=== PATIENT | female | born 1950 | race Caucasian/White ===

== ENCOUNTER 2016-10-08 12:48 | Inpatient (IN) | payer OTHER ==
[~2016-10-08] VITALS: Ht 157.5 cm; Wt 83.9 kg
[~2016-10-08 12:48] MED LIST: ADVAIR DISKUS 21 DSK INH; BIOTIN5 MG PO; CALCIUM + D 6001 TAB PO; CENTRUM1 TAB PO; GLUCOSAMINE500 MG PO; GOOD SENSE IBU200 MG PO; LEVAQUIN750 MG PO; MAGNESIUM OXID400 MG PO; NATURAL IRON65 MG PO; POTASSIUM CHLO10 MEQ PO; PROAIR HFA0.09 MG/Ac INH; VITAB121000 PO; VITAMIN D32000 I1 PO
--- NOTE | 2016-10-12 10:22 | Operative Report ---
Operative/Inv Procedure Report Surgery Date: 10/12/16 Name of Procedure: Left total knee arthroplasty Pre-Operative Diagnosis: Primary left knee osteoarthritis Post-Operative Diagnosis: Same Estimated Blood Loss: less than 50ml Surgeon/Trackmobile Operator: CURLY DRUMMOND,Robin PETERSON. Anesthesia: block Implants: Stuart triathlon total knee system-size 4 femur, size 3 tibia, 11 mm cruciate retaining polyethylene, 27 patella Drains: None Specimens: Femoral, tibial, patellar bone Microbiology: Urine Tourniquet: 54 minutes Complications: none Condition: Stable Operative Indication: Patient is a 65-year-old woman with worsening bilateral knee pain. He had been treated with conservative measures for a long period of time but only short-term relief most recently seems total knee arthroplasty after risks benefits and expectations of surgical and further nonsurgical options including but not limited to persistent knee pain, need for subsequent surgery, infection, DVT, injury to blood vessel or nerve, anesthesia risks Operative/Procedure Note Note: Patient was brought to the operating room and transferred to the operating table. Once under appropriate anesthesia the left lower extremity was prepped and draped in standard fashion. Preoperative IV antibiotics were given prophylactically. Leg was elevated exsanguinated and tourniquet was inflated to 300 mm of pressure. Standard anterior incision was made for anticipated medial parapatellar approach. The incision was taken down sharply to the underlying retinaculum. Retinaculum was incised with a minimal extension into the quadriceps tendon. Osteophytes were excised. Knee was flexed after excision of remnants of the medial and lateral menisci. Remnants of the ACL was excised. I then used a drill to enter the intramedullary canal for the intramedullary guide for the distal femoral cut. This cut was made 6 valgus orientation. I then sized the femur to a size 4. Size 4 cutting guide was pinned in place and the 4 cuts were made. I then turned my attention to the tibia. I used the external tibial alignment guide. This guide was set for a neutral cut from medial to lateral and reproducing patient's posterior slow-paced on preoperative templating and intraoperative measurements. Soft tissues were protected medially laterally and posteriorly. The PCL was recessed to balance. Remnants of the posterior horns of the medial lateral menisci were excised. The cut was made. The tibia was incised was size 3. Trial was then performed using a size 3 tibia size 4 femur and a 9 mm insert. The Balancing was symmetric but patient would need a 11 mm insert this would be confirmed later on the case. I then turned my attention to the patella. The patella was measured the appropriate thickness was removed and replaced with a 27 mm patella. 3 lug holes were drilled. The tibial rotation was marked and the 2 lug holes for the femur completed. I then removed all trial components. I finished preparation of the tibia with the tibial punch with the appropriate rotation predetermined. I then removed all instrumentation and copiously irrigated the knee. After copious irrigation and after plugging the distal femur with the anterior chamfer bone to minimize postoperative hemarthrosis and swelling he cement was applied to the dry clean bony surfaces of the tibia. The size 3 tibia was impacted in place and excess cement was removed with curettes. Cement was applied to the dry clean bony surfaces of the femur. The size 4 femoral component was impacted in place and excess cement was removed with curettes. The 11 mm insert was applied to the knee and the knee was taken out to full extension. Cement was applied to the dry clean bony surfaces of the patella and the 27 mm patella was impacted in place and excess cement was removed with a knife. As cement was hardening I did appear to going. Capsular injection of a cocktail which included ropivacaine with epinephrine, Toradol for postoperative pain and inflammation management. Once cement was hardening took the knee through range of motion. I was satisfied with the stability with 11 mm insert. Full extension. No evidence of mid flexion instability and full flexion to gravity. I did appear that I would need to do a lateral release. I then removed the trial polyethylene. I injected the cocktail of ropivacaine with epinephrine and Toradol and the posterior capsule as well after copious irrigation tibial tray I impacted the definitive polyethylene. Locking mechanism was confirmed. Copious irrigation followed and it followed after every level of closure. The tourniquet was deflated at 54 minutes. Hemostasis was obtained. No need for a drain. I then proceeded to close the retinaculum and medial extension incision in the quadriceps tendon with #1 Vicryl suture. Subcutaneous tissues closed in 2 layers with 2-0 Vicryl and skin was closed with a running 3-0 Vicryl suture with the knee in flexion. Appropriate dressings were applied. Patient was awakened and taken to recovery room in good condition. No intraoperative complications. Blood loss was approximately 50 mL or less Discharge Disposition: PACU
[2016-10-12 12:24] VITALS: BP 138/78
--- NOTE | 2016-10-12 12:32 | PN- Orthopedic ---
Subjective Subjective: The patient was seen this afternoon postoperatively. She reports her pain is under adequate control and she has no other complaints at the current time. Objective Vital Signs and I&Os Vital Signs Date Time Temp Pulse Resp B/P B/P Pulse O2 O2 Flow FiO2 Mean Ox Delivery Rate 10/12 1224 97.6 72 18 138/78 97 Room Air Intake & Output 10/12 1600 10/12 0800 10/12 0000 10/11 1600 10/11 0800 10/11 0000 Intake Total Output Total Balance Patient 185 lb Weight I's and O's: 1000 ML's of lactated Ringer's and/260 mg of urine out via Partida catheter/EBL 50 ML's Physical Exam: Gen.: Alert and in no obvious distress Skin: Warm and dry Cardiac: S1-S2 regular Pulmonary: Bilateral breath sounds are equal with good exchange Extremities: Bilateral lower extremities are warm without calf tenderness or significant edema. Gross motor and sensory are intact. Left lower extremities surgical dressing is clean, dry, and intact. There is an On-Q pain pump in place. Assessment/Plan Assessment/Plan Assessment: 65-year-old female status post left total knee arthroplasty. Postoperative the patient is progressing as expected and her pain is under adequate control. Plan: Out of bed with physical therapy patient is weightbearing as tolerated Continue current pain regiment with the addition of Toradol when necessary Begin Coumadin therapy tonight Follow-up morning labs to be dose Coumadin GI and DVT prophylaxis Strict I's and O's Continue Partida catheter and IV fluids until the morning Advance diet as tolerated Total respiratory care 2 doses of postoperative prophylactic antibiotics resume home medications Core Measures/Miscellaneous Partida Catheter Date In: 10/12/16 Still Needed? Yes Venous Thromboembolism VTE Risk Factors: Age > 40, Surgery VTE Contraindications: No Contraindications VTE Diagnosis: No Beta Teresa Is Beta Teresa a Home Med? No Antibiotics Is Patient on Antibiotics? Yes If Yes: prophylaxis
[2016-10-12 14:53] VITALS: BP 124/62
--- NOTE | 2016-10-12 16:02 | Patient Discharge Instructions ---
Discharge Instructions General Discharge Information You were seen/treated for: Left knee pain related to osteoarthritis You had these procedures: Left total knee replacement Watch for these problems: Increasing pain despite the use of pain medication. Increasing redness, warmth, or swelling. Drainage of any type from incision. Inability to bear weight on left leg. Fever greater than 101.5. Do not soak the wound: Yes No bath, but you may shower: Yes Other wound care: Daily dry dressing change, keep wound clean and dry. Special Instructions: Coumadin: You are taking a blood thinning medication called Coumadin. Another name for this medication is warfarin. The dose of this medication based on labwork called INR and is subject to change daily. Your INR will be checked regularly. Please obtain daily specific instructions regarding the dose you are required to be taking. take 7mg of coumadin tonight and rechedk tomorrow, tomorrows evening dose will be based on the INR blood test Diet Continue normal diet: Yes Recommended Diet: Regular Additional DIET Information: Advance as tolerated Activity Full Activity/No Limits: No Activity Self Limited: Yes Pounds, do NOT lift more than: 10 Additional ACTIVITY Info: Weight bear as tolerated on left leg Acute Coronary Syndrome Inclusion Criteria At DC or during hospital stay patient has or had the following: ACS DIAGNOSIS No Discharge Core Measures Meds if any: Prescribed or Continued at Discharge Meds if any: NOT Prescribed or Continued at Discharge Congestive Heart Failure Inclusion Criteria At DC or during hospital stay patient has or had the following: CHF DIAGNOSIS No Discharge Core Measures Meds if any: Prescribed or Continued at Discharge Meds if any: NOT Prescribed or Continued at Discharge Cerebrovascular accident Inclusion Criteria At DC or during hospital stay patient has or had the following: CVA/TIA Diagnosis No Discharge Core Measures Meds if any: Prescribed or Continued at Discharge Meds if any: NOT Prescribed or Continued at Discharge Venous thromboembolism Inclusion Criteria VTE Diagnosis No VTE Type NONE VTE Confirmed by (Test) NONE Discharge Core Measures - Per Current guidelines, there needs to be overlap - treatment for the first 5 days of Warfarin therapy. - If discharged on Warfarin prior to 5 days of - overlap therapy, the patient will need to be - assessed for post discharge needs including - *Post discharge parental anticoagulation - *Warfarin and/or parental anticoagulation education - *Follow up date to check INR post discharge At least 5 days overlap therapy as Inpatient No Meds if any: Prescribed or Continued at Discharge Note: Overlap Therapy is Warfarin and Anticoagulant Meds if any: NOT Prescribed or Continued at Discharge
--- NOTE | 2016-10-12 16:13 | Surgical Discharge Summary ---
See Addendum Visit Information Visit Dates Admission Date: 10/12/16 Discharge Date: 10/15/16 History of Present Illness Chief Complaint: Left knee pain secondary to unilateral primary osteoarthritis Medical History Blood Transfusion Hx: No Neurological: NONE EENT: NONE Cardiovascular: NONE Respiratory: asthma Gastrointestinal: diverticulitis Hepatic: NONE Renal: NONE Musculoskeletal: ARTHRITIS Psychiatric: NONE Endocrine: NONE Blood Disorders: NONE Cancer(s): NONE INDUSTRIAL DESIGN ENGINEER/Reproductive: NONE History of MRSA: No History of VRE: No History of CDIFF: No Isolation History: Standard Influenza Vaccine: 03/31/16 Surgical History Pertinent Surgical History: TONSILECTOMY Family History Relations & Conditions If Any: FATHER FH: hypertension FH: myocardial infarction MOTHER FH: hypertension High cholesterol SISTER Mitral valve prolapse grandmother FH: heart disease Psychosocial History Where Do You Live? Home Who Do You Live With? Patient/Self What is Your Primary Language? Venezuelan Review of Systems: See H&P Hospital Course Course Attending Physician: CURLY DRUMMOND,[facility] Primary Care Physician: AISHWARYA DRUMMOND,[facility] Course: Corina was admitted to the hospital on 10/12/2016 for an elective Left total knee replacement. She tolerated the procedure well and she was transferred to a general surgical floor. There, her vitals signs remained stable and within normal limits and her neurovascular status remained intact. She voided spontaneously. Her diet was advanced and tolerated. Her pain was well controlled with po pain medication. She was evaluated and treated by physical therapy and was deemed appropriate for discharge. She was placed on antibiotics for infectious prophylaxis and Coumadin for DVT prophylaxis, INR is 1.24 on . Allergies: Coded Allergies: acetaminophen (ITCHING 10/12/16) clarithromycin (From BIAXIN) (ITCHING 10/12/16) codeine (ITCH 10/12/16) hydrocodone (ITCH 10/12/16) oxycodone (ITCH 10/12/16) Disposition Summary Disposition Principal Diagnosis: Left knee unilateral primary osteoarthritis Additional Diagnosis: None Discharge Disposition: SNF Discharge Instructions General Discharge Information Code Status: Full Code Patient's Diet: Regular, advance as tolerated Patient's Activity: WBAT Follow-Up Instructions/Appts: Follow up with Dr. To in 2 weeks from date of surgery Recommend Coumadin 7 mg tonight, INR checked tomorrow and dose adjustments based on tomorrow's blood test results Medications at Discharge Discharge Medications: Stop taking the following medications: Ibuprofen (Ibuprofen) 200 MG TABLET ORAL EVERY 8 HOURS NEEDED as needed for arthritic pain Days = 30 Continue taking these medications: Albuterol Sulfate (Proair Hfa) 0.09 MG/Actuation RHETT 2 Puff Inhale through mouth DAILY Qty = 9 Comments: INHALE 1 TO 2 PUFFS INTO THE LUNGS Q 4 TO 6 H PRN - SIG Obtained From Replaced By [facility] FLUTICASONE/SALMETEROL (Advair 250-50 Diskus) 250 MCG-50 MCG/DOSE BLST.W.DEV 1 PUFF Inhale through mouth TWICE DAILY Qty = 60 Comments: TK 1 PUFF PO BID RINSE MOUTH AFTER USE - SIG Obtained From Replaced By [facility] Multivitamin and Minerals3 (Centrum) 1 TAB TAB 1 Tablet ORAL DAILY Comments: Last Taken: 08/09/14 Time: 1000 Glucosamine Sulfate (Glucosamine) 500 MG CAP 1 Tablet ORAL DAILY Cyanocobalamin (Vitamin B-12) 1,000 MCG TABLET 1 Tablet ORAL DAILY Comments: Last Taken:08/09/14 Time:1000 Magnesium Oxide (Magnesium Oxide) 400 MG TABLET 250 Milligram ORAL DAILY Comments: Last Taken: 08/09/14 Time: 1000 Potassium Chloride (Potassium Chloride) 10 MEQ CAPSULE.ER 90 Milligram ORAL DAILY Calcium/Vitamin D (Calcium + D) 600 MG/200 IU TAB 1 Tablet ORAL DAILY Comments: Last Taken: 08/09/14 Time: 1000 Biotin (Biotin) 5 MG TABLET 5 Milligram ORAL DAILY Comments: Last Taken: NOT GIVEN Time: FERROUS SULFATE (IRON) 325 MG (65 MG IRON) TABLET 1 Tablet ORAL DAILY CHOLECALCIFEROL (VITAMIN D3) (Vitamin D-3) 2,000 UNIT CAPSULE 2,000 Units ORAL DIALY Start taking the following new medications: Docusate Sodium (Docusate Sodium) 100 MG CAPSULE 100 Milligram ORAL TWICE DAILY as needed for CONSTIPATION Days = 14 No Refills Instructions: stool softener available over the counter Tramadol HCl (Tramadol HCl) 50 MG TABLET 1-2 Tablet ORAL EVERY 4-6 HOURS NEEDED as needed for pain control Qty = 30 No Refills Acetaminophen (Tylenol Extra Strength) 500 MG TABLET 1 Tablet ORAL Every 6-8 Hours as Needed as needed for pain control Days = 10 No Refills Instructions: available over the counter. stagger with tramadol. Warfarin Sodium (Coumadin) 5 MG TABLET 1 Tablet ORAL DAILY Qty = 30 No Refills Instructions: dose adjustment as per blood draws for PT/INR. goal INR 2-3. Warfarin Sodium (Coumadin) 1 MG TABLET 1 Tablet ORAL As Directed Qty = 30 No Refills
[2016-10-12 19:42] VITALS: BP 136/68
[2016-10-12 23:33] VITALS: BP 120/78
[2016-10-13 06:51] VITALS: BP 130/82
--- NOTE | 2016-10-13 07:27 | PN- Orthopedic ---
See Addendum Subjective Subjective: Patient without complaints. States that she feels like she has a small bruise on lateral aspect of knee. No other pain. Denies chest pain, shortness of breath and difficulty breathing. Denies nausea and vomitting. Partida catheter dc /d this am, has yet to void. No bm, positive flatus. Objective Vital Signs and I&Os Vital Signs Date Time Temp Pulse Resp B/P B/P Pulse O2 O2 Flow FiO2 Mean Ox Delivery Rate 10/13 0651 97.8 73 18 130/82 93 Room Air 10/12 2333 98.1 78 18 120/78 95 Room Air 10/12 1942 77 18 136/68 96 Room Air 10/12 1453 98.4 82 20 124/62 96 Room Air 10/12 1438 Room Air Room Air 10/12 1224 97.6 72 18 138/78 97 Room Air Intake & Output 10/13 0800 10/13 0000 10/12 1600 10/12 0800 10/12 0000 10/11 1600 Intake Total 381 630 5467 Output Total 1375 2000 500 Balance -775 -1550 650 Intake, IV 600 150 Intake, Oral 450 1000 Output, Urine 1375 1999 500 Patient 185 lb Weight Physical Exam: General: Alert and oriented x3, no acute distress Cardiac: RRR, s1s2 Pulm CTA bilaterally Abd: Soft, non-tender, non-distended Extremities: Moves all extremities, distal sensation intact. Motor 5/5 in plantar and dorsi flexion. Skin warm and well perfused. DP pulses palpable bilaterally. Bilateral calves soft and non-tender Surgical site: ON Q in place, no leakage, dressing dry and intact Assessment/Plan Assessment/Plan This is a 65 year old female, POD 1, s/p left tkr, doing well -Continue toradol, offirmev, tramadol for pain (itches with most narcotics) -OOB with pt today. wbat -DVT ppx: Coumadin, f/u am labs, dose for target INR 2-3 -Bowel regimen: Senna, miralax -Diet as tolerated -Dispo planning: home possibly POD 3 -D/C iv fluids -Will d.w Dr. To Core Measures/Miscellaneous Partida Catheter Date In: 10/12/16 Venous Thromboembolism VTE Risk Factors: Age > 40, Surgery VTE Contraindications: No Contraindications VTE Diagnosis: No Beta Teresa Is Beta Teresa a Home Med? No Antibiotics Is Patient on Antibiotics? Yes If Yes: prophylaxis
[2016-10-13 07:46] LABS: ABSOLUTE BASOPHIL COUNT 0 /CUMM (0.0-0.2); ABSOLUTE EOSINOPHIL COUNT 0 /CUMM (0.0-0.7); ABSOLUTE GRANULOCYTE CT 8.1 /CUMM (1.4-6.5); ABSOLUTE LYMPH COUNT 0.8 /CUMM (1.2-3.4); ABSOLUTE MONOCYTE COUNT 0.8 /CUMM (0.10-0.60); BASOPHIL % 0.1 % (0.0-2.0); EOSINOPHIL % 0 % (0-5); GRANULOCYTE % 84.1 % (42.2-75.2); HEMATOCRIT 37.7 % (37-47); MEAN CORPUSCULAR HGB 29.4 PG (27.0-31.0); MEAN CORPUSCULAR HGB CONC 33.5 G/DL (33.0-37.0); MEAN CORPUSCULAR VOLUME 87.7 FL (81.0-99.0); MEAN PLATELET VOLUME 8.3 FL (7.4-10.4); PLATELET COUNT 225 /CUMM (130-400); RBC DISTRIBUTION WIDTH 13.9 % (11.5-14.5)
[2016-10-13 08:00] VITALS: BP 130/82
[2016-10-13 08:23] LABS: PT 10.3 SEC (9.4-12.5)
[2016-10-13 08:35] LABS: WHITE BLOOD CELL COUNT 9.7 /CUMM (4.8-10.8)
[2016-10-13 14:43] VITALS: BP 138/68
--- NOTE | 2016-10-13 18:28 | NUR ---
PATIENT IV INFILTRATED @ 1850 WHILE TRYING TO ADMINISTER PRN PAIN MEDICATION TORODOL. SURGGICAL DANYA PAGED. PENDING CALL BACK. WILL CONT TO MONITOR.
--- NOTE | 2016-10-13 18:36 | NUR ---
NURSING NOTE: SPOKE TO SURGICAL PA ABOUT PATIENT REFUSING ANOTHER IV. PATIENT ADAMANTLY REFUSING NEW IV DUE TO PAST TRAUMATIC EXPERIENCE. PATIENT IS ALERT AND ORIENTED X 3. AWARE OF RISKS AND CONTINUES TO REFUSE NEW IV. SNO TO GIVE IM TORODOL AND OKAY TO INCREASE ON Q PUMP TO 12ML/HR PER SURGICAL PA RAMON. WILL CONT TO MONITOR.
[2016-10-13 22:14] VITALS: BP 132/66
[2016-10-14 07:00] VITALS: BP 128/72
[2016-10-14 07:55] LABS: ABSOLUTE BASOPHIL COUNT 0 /CUMM (0.0-0.2); ABSOLUTE EOSINOPHIL COUNT 0.1 /CUMM (0.0-0.7); ABSOLUTE GRANULOCYTE CT 3.6 /CUMM (1.4-6.5); ABSOLUTE LYMPH COUNT 1.8 /CUMM (1.2-3.4); ABSOLUTE MONOCYTE COUNT 0.6 /CUMM (0.10-0.60); BASOPHIL % 0.5 % (0.0-2.0); EOSINOPHIL % 1.8 % (0-5); HEMATOCRIT 37.4 % (37-47); MEAN CORPUSCULAR HGB 29.2 PG (27.0-31.0); MEAN CORPUSCULAR HGB CONC 33.1 G/DL (33.0-37.0); MEAN CORPUSCULAR VOLUME 88.2 FL (81.0-99.0); MEAN PLATELET VOLUME 8.3 FL (7.4-10.4); PLATELET COUNT 210 /CUMM (130-400); RBC DISTRIBUTION WIDTH 14.1 % (11.5-14.5); RED BLOOD CELL CT 4.24 /CUMM (4.20-5.40); WHITE BLOOD CELL COUNT 6.1 /CUMM (4.8-10.8)
--- NOTE | 2016-10-14 07:56 | PN- Orthopedic ---
See Addendum Subjective Subjective: Reports pain improves with tramadol / tylenol. Doing well with PT. No dizziness. No shortness of breath. No chest pains. Tolerating diet. No nausea. Voiding well. +bms. Anticipates discharge to home tomorrow. Objective Vital Signs and I&Os Vital Signs Date Time Temp Pulse Resp B/P B/P Pulse O2 O2 Flow FiO2 Mean Ox Delivery Rate 10/14 0700 98.3 84 18 128/72 95 Room Air 10/13 2214 97.8 81 18 132/66 94 Room Air 10/13 1443 98.0 78 18 138/68 98 Room Air Intake & Output 10/14 1600 10/14 0800 10/14 0000 10/13 1600 10/13 0800 10/13 0000 Intake Total 120 820 600 450 Output Total 450 1375 1999 Balance 120 370 -775 -1550 Intake, IV 100 600 Intake, Oral 120 720 450 Number 1 Bowel Movements Output, Urine 450 1375 1999 Physical Exam: General - alert & oriented x 3. comfortable. no acute distress. Lungs - clear bilaterally. no w/r/r. Cardiac - s1s2. reg. Abdomen - soft. nontender. Extremities - warm bilaterally. left knee dressing removed. incision approximated with steri strips. no erythema or exudates. nvi. on q removed earlier. calves soft and nontender b/l. Current Medications: Current Medications Sig/Silverio Start time Last Medication Dose Route Stop Time Status Admin Acetaminophen 975 MG Q6-PRN PRN 10/13 1845 AC 10/13 PO 1852 Acetaminophen 1,000 MG Q6P PRN 10/12 1200 DC IV 10/13 1156 Al Hydroxide/Mg 30 ML Q6P PRN 10/12 1200 AC Hydroxide PO Albuterol Sulfate 2 PUF Q4 PRN 10/12 1000 AC INH Diphenhydramine HCl 25 MG Q6P PRN 10/13 1845 AC PO Diphenhydramine HCl 25 MG Q6P PRN 10/12 1315 DC 10/12 IV 1853 Docusate Sodium 100 MG BID 10/12 2200 AC 10/13 PO 2259 Ketorolac 30 MG Q6P PRN 10/13 1845 AC 10/13 Tromethamine IM 1853 Ketorolac 30 MG Q8P PRN 10/12 1230 DC 04/25 Tromethamine IV 0637 Metoclopramide HCl 10 MG Q6P PRN 10/12 1330 AC IV Naloxone HCl 0.2 MG .Q5MIN PRN 10/12 1315 AC IV Ondansetron HCl 4 MG Q6P PRN 10/12 1200 DC IV Polyethylene Glycol 17 GM DAILY NEEDED PRN 10/12 1200 AC PO Ropivacaine 500 ML ONCE ONE 10/12 1015 AC ON-Q Ball 1 BAG INJ 10/14 1214 Senna/Docusate Sodium 2 TAB AT BEDTIME 10/12 2200 AC 10/13 PO 2259 Tramadol HCl 50 MG Q4-6 PRN PRN 10/12 1200 AC 10/13 PO 2030 Warfarin Sodium 7.5 MG COUMADIN 1700 ONE 10/13 1700 DC 10/13 PO 10/13 1701 1643 Results Last 48 Hours of Labs: Laboratory Tests 10/14 10/13 0620 0615 Chemistry Sodium (137 - 145 mmol/L) 141 Potassium (3.5 - 5.1 mmol/L) 4.4 Chloride (98 - 107 mmol/L) 105 Carbon Dioxide (22 - 30 mmol/L) 25 Anion Gap (5 - 16) 11 BUN (7 - 17 mg/dL) 10 Creatinine (0.5 - 1.0 mg/dL) 0.6 Estimated GFR (>60 ml/min) > 60 BUN/Creatinine Ratio (7 - 25 %) 16.7 Coagulation PT (9.4 - 12.5 SEC) Pending 10.3 INR (0.90 - 1.19) Pending 0.98 Hematology CBC w Diff Pending NO MAN DIFF REQ WBC (4.8 - 10.8 /CUMM) Pending 9.7 RBC (4.20 - 5.40 /CUMM) Pending 4.30 Hgb (12.0 - 16.0 G/DL) Pending 12.6 Hct (37 - 47 %) Pending 37.7 MCV (81.0 - 99.0 FL) Pending 87.7 MCH (27.0 - 31.0 PG) Pending 29.4 RDW (11.5 - 14.5 %) Pending 13.9 Plt Count (130 - 400 /CUMM) Pending 225 MPV (7.4 - 10.4 FL) Pending 8.3 Gran % (42.2 - 75.2 %) 84.1 H Lymphocytes % (20.5 - 51.1 %) 8.0 L Monocytes % (1.7 - 9.3 %) 7.8 Eosinophils % (0 - 5 %) 0 Basophils % (0.0 - 2.0 %) 0.1 Absolute Granulocytes (1.4 - 6.5 /CUMM) 8.1 H Absolute Lymphocytes (1.2 - 3.4 /CUMM) 0.8 L Absolute Monocytes (0.10 - 0.60 /CUMM) 0.8 H Absolute Eosinophils (0.0 - 0.7 /CUMM) 0 Absolute Basophils (0.0 - 0.2 /CUMM) 0 PUBS MCHC (33.0 - 37.0 G/DL) Pending 33.5 Assessment/Plan Assessment/Plan This is a 65 year old female with hx asthma, now POD#2 s/p left tkr tolerating diet pain improves with tramadol / tylenol / toradol dressing changed on q removed oob/ambulating well f/u labs coumadin accordingly - dvt ppx bowel regime ordered d/c planning, she anticipates home tomorrow will d/w Core Measures/Miscellaneous Partida Catheter Date In: 10/12/16 Venous Thromboembolism VTE Risk Factors: Age > 40, Surgery VTE Contraindications: No Contraindications VTE Diagnosis: No Beta Teresa Is Beta Teresa a Home Med? No Antibiotics Is Patient on Antibiotics? Yes If Yes: prophylaxis
[2016-10-14] MEDS ORDERED: COUMADIN5 M2 PO (08:10)
[2016-10-14] MEDS ORDERED: DOCUSATE SODIU100 M3 PO (08:10)
[2016-10-14] MEDS ORDERED: TYLENOL EXTRA500 M2 PO (08:10)
[2016-10-14] MEDS ORDERED: TRAMADOL HCL50 M1 PO (08:10)
[2016-10-14 08:28] LABS: PT 10.9 SEC (9.4-12.5)
--- NOTE | 2016-10-14 09:54 | NUR ---
PHYSICAL THERAPY: ATTEMPTED TO SEE PATIENT THIS MORNING; PATIENT WAS SEATED IN CHAIR VISIBLY UPSET AND CRYING DUE TO PAIN L KNEE; RECENT PAIN MED ADM GIVEN; Pt STATING EXERCISE AND TRANSFER INCREASED HER PAIN. OFFERED COMFORT APPROPRIATE AND P.T. TO F/U WHEN Pt ABLE TO PARTICIPATE. UPON RETURN, Pt WAS IN CARE OF TRANSPORT STAFF, GOING OFF THE FLOOR FOR X-RAY. WILL F/U APPROPRIATE THIS AFTERNOON.
--- NOTE | 2016-10-14 09:55 | NUR ---
PT LEFT FLOOR VIA STETCHER FOR XRAY. WILL AWAIT RETURN TO FLOOR.
--- NOTE | 2016-10-14 12:48 | RADIOLOGY REPORT ---
EXAMINATION: XR KNEE, LEFT CLINICAL INFORMATION: Total knee arthroplasty COMPARISON: Left knee MRI 07/13/2016 TECHNIQUE: Two views of the left knee. FINDINGS: Patient is status post total cemented arthroplasty of the left knee. Components are in expected orientation. Small suprapatellar joint effusion present. Peripherally calcified loose body again noted posterior to the tibia. Subcutaneous emphysematous changes consistent with surgery. IMPRESSION: The patient is status post total knee arthroplasty with components in expected orientation.
[2016-10-14 14:13] VITALS: BP 122/60
[2016-10-14 23:12] VITALS: BP 120/70
[2016-10-15 06:39] VITALS: BP 120/80
--- NOTE | 2016-10-15 08:16 | PN- Orthopedic ---
Subjective Subjective: Patient's pain is controlled, she is voiding, she is passing gas. He had no events overnight and has not complaints. Pain is slowly getting better and she is comfortable on the current pain regiment. Objective Vital Signs and I&Os Vital Signs Date Time Temp Pulse Resp B/P B/P Pulse O2 O2 Flow FiO2 Mean Ox Delivery Rate 10/15 0639 98.3 72 20 120/80 96 Room Air 10/14 2312 97.9 77 18 120/70 96 Room Air 10/14 1413 98.0 84 18 122/60 94 Room Air Intake & Output 10/15 0810/15 0000 10/14 1600 10/14 0800 10/14 0000 Intake Total 300 600 700 120 Output Total Balance 300 600 700 120 Intake, Oral 300 600 700 120 Physical Exam: Well-developed well-nourished no apparent distress. HEENT: Atraumatic, extraocular motion intact Neck: Supple, no lymphadenopathy Respiratory: No respiratory distress Extremities: No edema LEFT lower extremity dressing in place, Incision line is clean dry and intact with minimal dry bloody drainage. No signs of infection. Dressing changed, dry dressings applied Mild to moderate joint effusion Range of motion is 0-50. Neurovascularly intact distally Bilateral calves are supple, nontender. Neuro: Alert and oriented x3 Psych: Mood affect normal, normal memory normal judgment. Skin: Warm and dry, no rash on exposed skin Results Last 48 Hours of Labs: Laboratory Tests 10/15 10/14 0644 0620 Coagulation PT (9.4 - 12.5 SEC) Pending 10.9 INR (0.90 - 1.19) Pending 1.04 Hematology CBC w Diff NO MAN DIFF REQ WBC (4.8 - 10.8 /CUMM) 6.1 RBC (4.20 - 5.40 /CUMM) 4.24 Hgb (12.0 - 16.0 G/DL) 12.4 Hct (37 - 47 %) 37.4 MCV (81.0 - 99.0 FL) 88.2 MCH (27.0 - 31.0 PG) 29.2 RDW (11.5 - 14.5 %) 14.1 Plt Count (130 - 400 /CUMM) 210 MPV (7.4 - 10.4 FL) 8.3 Gran % (42.2 - 75.2 %) 58.0 Lymphocytes % (20.5 - 51.1 %) 29.4 Monocytes % (1.7 - 9.3 %) 10.3 H Eosinophils % (0 - 5 %) 1.8 Basophils % (0.0 - 2.0 %) 0.5 Absolute Granulocytes (1.4 - 6.5 /CUMM) 3.6 Absolute Lymphocytes (1.2 - 3.4 /CUMM) 1.8 Absolute Monocytes (0.10 - 0.60 /CUMM) 0.6 Absolute Eosinophils (0.0 - 0.7 /CUMM) 0.1 Absolute Basophils (0.0 - 0.2 /CUMM) 0 PUBS MCHC (33.0 - 37.0 G/DL) 33.1 Assessment/Plan Assessment/Plan Postop day #3 status post left total knee arthroplasty -Continue current pain regimen -DVT prophylaxis: Coumadin per INR, labs pending -Dressing changed today -Follow Labs pending this morning, if okay patient may be discharged to home today with VNA services Core Measures/Miscellaneous Partida Catheter Date In: 10/12/16 Venous Thromboembolism VTE Risk Factors: Age > 40, Surgery VTE Contraindications: No Contraindications VTE Diagnosis: No Beta Teresa Is Beta Teresa a Home Med? No Antibiotics Is Patient on Antibiotics? Yes If Yes: prophylaxis
[2016-10-15] MEDS ORDERED: COUMADIN1 M1 PO (08:24)
== END 2016-10-15 16:00 | disposition home health service (06) | DRG 470 ==
LOC: 2NB 10-12 03:52 → SDA 10-12 03:52 → ENRESERV 10-12 10:59 → 2NB 10-12 11:49 → ENPENDDIS 10-15 08:35 → 2NB 10-15 16:00
PROVIDERS: Physician Assistant; Physician Assistant Surgical; ADMIT Orthopaedic Surgery
PROC: 0SRD0J9 Replacement of Left Knee Joint with Synthetic Substitute, Cemented, Open Approach (ICD-10-PCS; principal; 2016-10-12)
DX: M17.12 Unilateral primary osteoarthritis, left knee (principal); E66.9 Obesity, unspecified; J45.909 Unspecified asthma, uncomplicated; Z68.33 Body mass index [BMI] 33.0-33.9, adult
CPT/HCPCS: 2NBP; 36415; 73560-LT; 82436; 87086; 88305; 97110-GO; 97116-GO; 97161-GP; 97530-GO; C1713; J0131; J0171; J1200; J1885; J2765; J2795; J3370; J3490; J7040